=== PATIENT | female | born 1980 | race Native Hawaiian/Other Pacific Islander ===

== ENCOUNTER 2018-06-18 15:02 | Emergency (ER) | payer OTHER ==
[~2018-06-18] VITALS: Ht 162.6 cm; Wt 79.4 kg
[2018-06-18] MEDS ORDERED: VENLAFAXINE150 M1 PO (15:31)
[2018-06-18 18:01] VITALS: BP 118/78; TEMP 98
== END 2018-06-18 18:02 | disposition home or self-care (01) ==
LOC: ED 15:02
PROC: 0H95XZZ Drainage of Chest Skin, External Approach (ICD-10-PCS; principal; 2018-06-18)
DX: L02.411 Cutaneous abscess of right axilla (principal)
CPT/HCPCS: 87070; 87205; 99282